=== PATIENT | female | born 1950 | race Caucasian/White ===

== ENCOUNTER 2020-04-03 22:09 | Inpatient (IN) ==
[2020-04-03] MEDS ORDERED: *HR* FentaNYL (PF) 100 MCG/2 ML VIAL IVP ONE (22:27)
[2020-04-03 23:37] LABS: Basophils % 0.5 %; Mean Corpuscular HGB Conc 32.9 g/dL (31.6-35.5)
[2020-04-03 23:39] LABS: Basophils # 0.1 K/mcL (0.0-0.2); Eosinophils % 0.3 %; Hematocrit 42.6 % (35.3-44.9); Immature Granulocytes % 0.4 % (0-4); Immature Platelets 6.2 % (1.1-6.1); Lymphocytes # 1.3 K/mcL (0.6-4.6); Lymphocytes % 8.1 %; Mean Corpuscular Hemoglobin 28.9 pg (28.0-33.3); Mean Platelet Volume 10.7 fL (9.4-12.4); Monocytes # 0.8 K/mcL (0.0-1.3); Monocytes % 5.1 %; Neutrophils # 13.4 K/mcL (1.6-8.9); Nucleated Red Blood Cells 0.3 /100 WBC (0); Platelet Count 184 K/mcL (140-400); Red Blood Count 4.84 M/mcL (3.82-4.97); Segmented Neutrophils % 85.6 %; White Blood Count 15.6 K/mcL (4.3-11.1)
[2020-04-03 23:49] LABS: Calcium 8.7 mg/dL (8.6-10.3); Potassium 4.5 mEq/L (3.5-5.1)
[2020-04-04] MEDS ORDERED: Naloxone 0.4 MG/ML INJ IVP PRN ×2 (00:43→22:19)
[2020-04-04] MEDS ORDERED: 0.9 % Sodium Chloride 1,000 ML IVC SCH (00:45)
[2020-04-04 01:23] LABS: Eosinophils # 0.1 K/mcL (0.0-0.6)
[2020-04-04] MEDS ORDERED: Dextrose Gel 15 GM/37.5 ML TUBE PO PRN ×4 (02:55→22:19)
[2020-04-04] MEDS ORDERED: *HR* Dextrose 50 % in Water (Vial) 50 ML VIAL IVP PRN ×2 (02:55→22:19)
[2020-04-04] MEDS ORDERED: D5% in Water 1,000 ML IVC PRN ×2 (02:55→22:19)
[2020-04-04 03:25] LABS: Hemoglobin 13.6 g/dL (11.5-15.4); Mean Corpuscular HGB Conc 30.9 g/dL (31.6-35.5); Mean Corpuscular Hemoglobin 28.1 pg (28.0-33.3); Mean Corpuscular Volume 90.9 fL (83.0-100.0); Mean Platelet Volume 10.5 fL (9.4-12.4); Platelet Count 226 K/mcL (140-400); Red Blood Count 4.84 M/mcL (3.82-4.97); White Blood Count 15.6 K/mcL (4.3-11.1)
[2020-04-04 03:30] LABS: INR 1.2; Prothrombin Time 13.2 Seconds (9.4-12.1)
[2020-04-04 03:50] LABS: Calcium 8.6 mg/dL (8.6-10.3); Potassium 5.1 mEq/L (3.5-5.1)
[2020-04-04 05:18] LABS: Bilirubin,Urine Negative (Negative); Blood,Urine Negative (Negative); Clarity,Urine Clear (Clear); Color,Urine Light-Yellow (Yellow); Glucose,Urine (UA) Normal (Normal); Ketones,Urine Trace mg/dL (Negative); Leukocyte Esterase,Urine Negative (Negative); Nitrite,Urine Negative (Negative); PH,Urine 5.5 pH Units (5.0-8.0); Protein,Urine Trace mg/dL (Neg-Trace); Specific Gravity,Urine 1.019 (1.010-1.025); Urobilinogen,Urine Normal (Normal)
[2020-04-04] MEDS: Insulin LISPRO 300 UNITS/3 ML VIAL SQ SCH ×3 (05:41→18:01)
[2020-04-04] MEDS ORDERED: Fluconazole 150 MG TABLET PO SCH (09:00)
[2020-04-04] MEDS ORDERED: Metoprolol XL (24 HR) Succ 50 MG TAB.ER.24H PO SCH (09:00)
[2020-04-04] MEDS ORDERED: Total Joint Mixture (50 ml) INTRAART ONE (12:00)
[2020-04-04] MEDS ORDERED: *HR* Succinylcholine 200 MG/10 ML VIAL IVP ONE (18:02)
[2020-04-04] MEDS ORDERED: *HR* Propofol 200 MG/20 ML VIAL IVP ONE (18:02)
[2020-04-04] MEDS ORDERED: Ondansetron 4 MG/2 ML VIAL ONE ×2 (18:02→21:55)
[2020-04-04] MEDS ORDERED: Lidocaine -MPF 2% 2 ML VIAL ONE (18:02)
[2020-04-04] MEDS ORDERED: Lidocaine HCL 4 ML Topical Solution (Laryng-O-Jet Kit Sterile Pak) TP ONE (18:02)
[2020-04-04] MEDS ORDERED: Vancomycin 1,000 MG VIAL ONE (18:16)
[2020-04-04] MEDS ORDERED: Ethanol\\Acetic Acid\\Na Ace\\Ben 1,000 ML IRRIG.SOLN IR ONE (18:16)
[2020-04-04] MEDS ORDERED: *HR* FentaNYL (PF) 100 MCG/2 ML VIAL ONE ×2 (18:48→19:48)
[2020-04-04] MEDS ORDERED: EPHEDrine 50 MG/ML VIAL ONE (19:17)
[2020-04-04] MEDS ORDERED: *HR* PHENYLEPHRINE 1,000 MCG/10 ML SYRINGE IVP ONE (20:30)
[2020-04-04 21:45] LABS: Hematocrit 42.9 % (35.3-44.9)
[2020-04-04] MEDS ORDERED: Ondansetron 4 MG/2 ML VIAL IVP ONE ×2 (21:53→22:19)
[2020-04-04] MEDS ORDERED: Ondansetron 4 MG/2 ML VIAL IVP PRN (22:19)
[2020-04-04] MEDS ORDERED: *HR* OxyCODONE Immed Rel 5 MG TABLET PO PRN (22:19)
[2020-04-04] MEDS ORDERED: MOM Conc 10 ML UD.LIQ PO PRN (22:19)
[2020-04-04] MEDS ORDERED: *HR* Promethazine 25 MG/ML VIAL IVP PRN ×2 (22:19)
[2020-04-04] MEDS ORDERED: Sennosides 8.6 MG TABLET PO PRN (22:19)
[2020-04-04] MEDS ORDERED: *HR* HYDROmorphone PF 0.5 MG/0.5 ML SYRINGE IVP PRN (22:19)
[2020-04-05] MEDS: CeFAZolin 2 GM/120 ML BAG IVPB SCH ×2 (00:27→07:35)
[2020-04-05] MEDS: Insulin LISPRO 300 UNITS/3 ML VIAL SQ SCH ×4 (00:34→19:14)
[2020-04-05] MEDS: Ringers Solution, Lactated 1,000 ML IVC SCH (03:43)
[2020-04-05 07:36] LABS: Hematocrit 39.8 % (35.3-44.9); Hemoglobin 12.4 g/dL (11.5-15.4); Mean Corpuscular HGB Conc 31.2 g/dL (31.6-35.5); Mean Corpuscular Hemoglobin 28.6 pg (28.0-33.3); Mean Corpuscular Volume 91.9 fL (83.0-100.0); Platelet Count 177 K/mcL (140-400); Red Blood Count 4.33 M/mcL (3.82-4.97); Red Cell Distribution Width 14.5 % (11.5-14.5); White Blood Count 18.3 K/mcL (4.3-11.1)
[2020-04-05] MEDS: Metoprolol XL (24 HR) Succ 50 MG TAB.ER.24H PO SCH (07:36)
[2020-04-05 07:56] LABS: Calcium 8.2 mg/dL (8.6-10.3); Potassium 5.3 mEq/L (3.5-5.1)
[2020-04-05] MEDS: Multivit/Ca/Min/Fe/FA 1 TAB TABLET PO SCH (11:25)
[2020-04-05] MEDS: Ascorbic Acid 500 MG TABLET PO SCH ×2 (11:26→17:09)
[2020-04-05] MEDS: 0.9 % Sodium Chloride 1,000 ML IVC SCH (14:35)
[2020-04-05] MEDS: HYDROcodone BIT/Homatropine 5 MG TABLET PO PRN ×2 (15:31→20:16)
[2020-04-05] MEDS ORDERED: Perflutren Lipid Microsphere 1.3 ML in 0.9 % Sodium Chloride 8.7 ML IVP PRN (17:39)
[2020-04-05] MEDS ORDERED: Aspirin Enteric Coated 81 MG Tablet PO SCH (18:00)
[2020-04-05] MEDS ORDERED: Haloperidol Lactate 5 MG/ML VIAL IVP PRN (18:05)
[2020-04-05] MEDS: *HR* Heparin 5,000 UNIT/ML VIAL SQ SCH (20:13)
[2020-04-06] MEDS ORDERED: *HR* Promethazine 25 MG/ML VIAL IVP ONE (00:36)
[2020-04-06] MEDS: 0.9 % Sodium Chloride 1,000 ML IVC SCH ×4 (01:08→23:23)
[2020-04-06] MEDS: Insulin LISPRO 300 UNITS/3 ML VIAL SQ SCH ×4 (01:13→18:14)
[2020-04-06] MEDS: Ringers Solution, Lactated 1,000 ML IVC SCH (02:14)
[2020-04-06] MEDS: *HR* Heparin 5,000 UNIT/ML VIAL SQ SCH ×2 (05:51→18:14)
[2020-04-06] MEDS: Multivit/Ca/Min/Fe/FA 1 TAB TABLET PO SCH (08:55)
[2020-04-06] MEDS: Aspirin 325 MG TABLET PO SCH (08:55)
[2020-04-06] MEDS: Metoprolol XL (24 HR) Succ 50 MG TAB.ER.24H PO SCH (08:56)
[2020-04-06] MEDS: Ascorbic Acid 500 MG TABLET PO SCH ×2 (08:56→15:12)
[2020-04-06 10:03] LABS: Hematocrit 35.6 % (35.3-44.9); Hemoglobin 11.1 g/dL (11.5-15.4); Mean Corpuscular HGB Conc 31.2 g/dL (31.6-35.5); Mean Corpuscular Hemoglobin 28.4 pg (28.0-33.3); Mean Platelet Volume 11.1 fL (9.4-12.4); Platelet Count 173 K/mcL (140-400); Red Blood Count 3.91 M/mcL (3.82-4.97); Red Cell Distribution Width 14.4 % (11.5-14.5); White Blood Count 18.3 K/mcL (4.3-11.1)
[2020-04-06 10:23] LABS: Calcium 7.4 mg/dL (8.6-10.3); Potassium 4.8 mEq/L (3.5-5.1)
[2020-04-06] MEDS ORDERED: levoFLOXacin 500 MG/100 ML 500 MG/100 ML BAG IVPB SCH (10:30)
[2020-04-06] MEDS: *HR* OxyCODONE Immed Rel 5 MG TABLET PO PRN (12:31)
[2020-04-06 13:50] LABS: Bacteria,Urine Few per hpf (None-Few); Bilirubin,Urine Negative (Negative); Blood,Urine Small (Negative); Clarity,Urine Turbid (Clear); Color,Urine Yellow (Yellow); Glucose,Urine (UA) Normal (Normal); Ketones,Urine Trace mg/dL (Negative); Leukocyte Esterase,Urine Small (Negative); Mucus,Urine Few per lpf (None-Few); Nitrite,Urine Negative (Negative); PH,Urine 5.5 pH Units (5.0-8.0); Protein,Urine 50 mg/dL (Neg-Trace); Specific Gravity,Urine 1.027 (1.010-1.025); Squamous Epithelial Cell,Urine Few per hpf (None-Few); Urobilinogen,Urine Normal (Normal)
[2020-04-06 13:57] LABS: Sodium, Urine 57.5 mEq/L
[2020-04-07] MEDS: Insulin LISPRO 300 UNITS/3 ML VIAL SQ SCH ×5 (00:45→23:49)
[2020-04-07] MEDS: *HR* Heparin 5,000 UNIT/ML VIAL SQ SCH ×2 (05:44→15:35)
[2020-04-07 06:04] LABS: Basophils # 0.1 K/mcL (0.0-0.2); Basophils % 0.5 %; Eosinophils # 0.5 K/mcL (0.0-0.6); Eosinophils % 4.4 %; Hematocrit 28.1 % (35.3-44.9); Hemoglobin 8.7 g/dL (11.5-15.4); Immature Granulocytes % 0.5 % (0-4); Lymphocytes # 1.3 K/mcL (0.6-4.6); Lymphocytes % 12.1 %; Mean Corpuscular Hemoglobin 28.7 pg (28.0-33.3); Mean Corpuscular Volume 92.7 fL (83.0-100.0); Mean Platelet Volume 11.3 fL (9.4-12.4); Monocytes # 0.7 K/mcL (0.0-1.3); Monocytes % 6.7 %; Neutrophils # 8.3 K/mcL (1.6-8.9); Platelet Count 149 K/mcL (140-400); Red Blood Count 3.03 M/mcL (3.82-4.97); Red Cell Distribution Width 14.6 % (11.5-14.5); Segmented Neutrophils % 75.8 %
[2020-04-07 06:25] LABS: BUN/Creatinine Ratio 15 (6-26); Blood Urea Nitrogen 39 mg/dL (8-23); Calcium 6.9 mg/dL (8.6-10.3); Carbon Dioxide 17 mEq/L (23-29); Chloride 111 mEq/L (98-107); Glucose 177 mg/dL (70-105); Magnesium 1.7 mg/dL (1.6-2.6); Osmolality,Calculated 296 (280-300); Phosphorous 3.8 mg/dL (2.7-4.5); Potassium 4.5 mEq/L (3.5-5.1); Sodium 136 mEq/L (136-145); eGFR For African Americans 21 (> 60); eGFR For Non-African Americans 18 (> 60)
[2020-04-07] MEDS: Aspirin 325 MG TABLET PO SCH (08:42)
[2020-04-07] MEDS: Metoprolol XL (24 HR) Succ 50 MG TAB.ER.24H PO SCH (08:42)
[2020-04-07] MEDS: Ascorbic Acid 500 MG TABLET PO SCH ×2 (08:45→15:35)
[2020-04-07] MEDS: Multivit/Ca/Min/Fe/FA 1 TAB TABLET PO SCH (08:46)
[2020-04-07] MEDS: Calcium Gluconate 1gm/50mL 1 GM/50 ML BAG IVPB SCH ×2 (10:36→11:53)
[2020-04-07 10:59] LABS: Alanine Aminotransferase < 3 Units/L (7-52); Albumin 2.6 g/dL (3.5-5.7); Albumin/Globulin Ratio 1.2 (1.1-2.2); Alkaline Phosphatase 75 Units/L (34-104); Aspartate Amino Transferase 16 Units/L (13-39); Bilirubin,Direct 0.1 mg/dL (0.0-0.2); Bilirubin,Indirect 0.4 mg/dL (0.0-1.0); Bilirubin,Total 0.5 mg/dL (0.3-1.0); Globulin 2.1 g/dL (2.4-3.5); Total Protein 4.7 g/dL (6.4-8.9)
[2020-04-07] MEDS ORDERED: 0.9 % Sodium Chloride 250 ML ONE (11:42)
[2020-04-07] MEDS: 0.9 % Sodium Chloride 1,000 ML IVC SCH ×2 (11:57→23:16)
[2020-04-07] MEDS: *HR* OxyCODONE Immed Rel 5 MG TABLET PO PRN (12:35)
[2020-04-07 14:07] LABS: Chol/HDL Ratio 4.3 (0-4.9)
[2020-04-07 14:46] LABS: Estimated Average Glucose 163 mg/dl
[2020-04-08] MEDS ORDERED: 0.9 % Sodium Chloride 250 ML ONE (00:41)
[2020-04-08] MEDS: 0.9 % Sodium Chloride 1,000 ML IVC SCH ×3 (04:49→19:53)
[2020-04-08] MEDS: *HR* OxyCODONE Immed Rel 5 MG TABLET PO PRN ×2 (05:55→20:15)
[2020-04-08] MEDS: *HR* Heparin 5,000 UNIT/ML VIAL SQ SCH ×2 (05:56→18:10)
[2020-04-08] MEDS: Insulin LISPRO 300 UNITS/3 ML VIAL SQ SCH ×3 (06:01→18:10)
[2020-04-08] MEDS: Aspirin 325 MG TABLET PO SCH (07:40)
[2020-04-08] MEDS: Ascorbic Acid 500 MG TABLET PO SCH ×2 (07:40→18:11)
[2020-04-08] MEDS: Multivit/Ca/Min/Fe/FA 1 TAB TABLET PO SCH (07:40)
[2020-04-08] MEDS: Metoprolol XL (24 HR) Succ 50 MG TAB.ER.24H PO SCH (07:40)
[2020-04-08] MEDS ORDERED: Cefdinir 300 MG CAPSULE PO SCH ×2 (09:00)
[2020-04-08 09:20] LABS: Potassium 4.6 mEq/L (3.5-5.1)
[2020-04-08 09:30] LABS: Calcium 7.3 mg/dL (8.6-10.3); Magnesium 1.8 mg/dL (1.6-2.6)
[2020-04-08 10:14] LABS: Basophils # 0.1 K/mcL (0.0-0.2); Basophils % 0.9 %; Eosinophils # 0.5 K/mcL (0.0-0.6); Eosinophils % 5.2 %; Hematocrit 37.6 % (35.3-44.9); Hemoglobin 11.7 g/dL (11.5-15.4); Immature Granulocytes % 0.7 % (0-4); Lymphocytes # 1.9 K/mcL (0.6-4.6); Lymphocytes % 18.7 %; Mean Corpuscular HGB Conc 31.1 g/dL (31.6-35.5); Mean Corpuscular Hemoglobin 28.6 pg (28.0-33.3); Mean Corpuscular Volume 91.9 fL (83.0-100.0); Mean Platelet Volume 11.5 fL (9.4-12.4); Monocytes # 0.6 K/mcL (0.0-1.3); Monocytes % 5.5 %; Neutrophils # 7.1 K/mcL (1.6-8.9); Nucleated Red Blood Cells 0.6 /100 WBC (0); Platelet Count 156 K/mcL (140-400); Red Blood Count 4.09 M/mcL (3.82-4.97); Red Cell Distribution Width 15.9 % (11.5-14.5); White Blood Count 10.3 K/mcL (4.3-11.1)
[2020-04-08] MEDS ORDERED: levoFLOXacin 750 MG TABLET PO SCH ×2 (10:30)
[2020-04-08] MEDS ORDERED: levoFLOXacin 500 MG TABLET PO SCH (12:00)
[2020-04-09] MEDS: 0.9 % Sodium Chloride 1,000 ML IVC SCH ×3 (03:07→22:30)
[2020-04-09 03:21] LABS: Basophils # 0.1 K/mcL (0.0-0.2); Basophils % 0.8 %; Eosinophils # 0.5 K/mcL (0.0-0.6); Eosinophils % 5.7 %; Hematocrit 29.1 % (35.3-44.9); Immature Granulocytes % 0.5 % (0-4); Lymphocytes # 1.9 K/mcL (0.6-4.6); Lymphocytes % 22.3 %; Mean Corpuscular HGB Conc 31.6 g/dL (31.6-35.5); Mean Corpuscular Hemoglobin 28.7 pg (28.0-33.3); Mean Corpuscular Volume 90.7 fL (83.0-100.0); Mean Platelet Volume 10.9 fL (9.4-12.4); Monocytes # 0.6 K/mcL (0.0-1.3); Monocytes % 7.5 %; Neutrophils # 5.3 K/mcL (1.6-8.9); Platelet Count 182 K/mcL (140-400); Red Blood Count 3.21 M/mcL (3.82-4.97); Red Cell Distribution Width 15.6 % (11.5-14.5); Segmented Neutrophils % 63.2 %; White Blood Count 8.3 K/mcL (4.3-11.1)
[2020-04-09 03:25] LABS: Hemoglobin 9.2 g/dL (11.5-15.4)
[2020-04-09 03:38] LABS: Calcium 7.2 mg/dL (8.6-10.3); Magnesium 1.7 mg/dL (1.6-2.6); Potassium 4.1 mEq/L (3.5-5.1)
[2020-04-09] MEDS: *HR* Heparin 5,000 UNIT/ML VIAL SQ SCH (05:41)
[2020-04-09] MEDS: Insulin LISPRO 300 UNITS/3 ML VIAL SQ SCH ×3 (07:39→16:50)
[2020-04-09] MEDS: Ascorbic Acid 500 MG TABLET PO SCH ×2 (08:20→16:49)
[2020-04-09] MEDS: Aspirin 325 MG TABLET PO SCH (08:21)
[2020-04-09] MEDS: Multivit/Ca/Min/Fe/FA 1 TAB TABLET PO SCH (08:21)
[2020-04-09] MEDS: Metoprolol XL (24 HR) Succ 50 MG TAB.ER.24H PO SCH (08:21)
[2020-04-09 08:47] LABS: Hematocrit 29.1 % (35.3-44.9); Hemoglobin 9.2 g/dL (11.5-15.4)
[2020-04-09] MEDS ORDERED: QUEtiapine Fumarate 25 MG TABLET PO PRN (11:18)
[2020-04-09] MEDS: Cyanocobalamin (B-12) 1,000 MCG TABLET PO SCH (11:44)
[2020-04-09] MEDS: *HR* OxyCODONE Immed Rel 5 MG TABLET PO PRN (15:47)
[2020-04-10] MEDS: *HR* OxyCODONE Immed Rel 5 MG TABLET PO PRN ×3 (03:23→13:57)
[2020-04-10 04:34] LABS: Basophils # 0.1 K/mcL (0.0-0.2); Basophils % 0.8 %; Eosinophils # 0.4 K/mcL (0.0-0.6); Eosinophils % 4.2 %; Hematocrit 33.4 % (35.3-44.9); Hemoglobin 10.7 g/dL (11.5-15.4); Immature Granulocytes % 0.6 % (0-4); Lymphocytes % 21.3 %; Mean Corpuscular Hemoglobin 28.9 pg (28.0-33.3); Mean Corpuscular Volume 90.3 fL (83.0-100.0); Mean Platelet Volume 10.7 fL (9.4-12.4); Monocytes # 0.8 K/mcL (0.0-1.3); Monocytes % 8.1 %; Neutrophils # 6.2 K/mcL (1.6-8.9); Platelet Count 230 K/mcL (140-400); Red Cell Distribution Width 15.6 % (11.5-14.5); White Blood Count 9.6 K/mcL (4.3-11.1)
[2020-04-10 04:54] LABS: Calcium 7.8 mg/dL (8.6-10.3); Magnesium 1.7 mg/dL (1.6-2.6); Phosphorous 2.5 mg/dL (2.7-4.5); Potassium 3.9 mEq/L (3.5-5.1)
[2020-04-10] MEDS: 0.9 % Sodium Chloride 1,000 ML IVC SCH ×2 (05:12→13:01)
[2020-04-10] MEDS: Aspirin 325 MG TABLET PO SCH (07:47)
[2020-04-10] MEDS: Multivit/Ca/Min/Fe/FA 1 TAB TABLET PO SCH (07:47)
[2020-04-10] MEDS: Metoprolol XL (24 HR) Succ 50 MG TAB.ER.24H PO SCH (07:48)
[2020-04-10] MEDS: Insulin LISPRO 300 UNITS/3 ML VIAL SQ SCH ×3 (07:48→17:41)
[2020-04-10] MEDS: Cyanocobalamin (B-12) 1,000 MCG TABLET PO SCH (07:48)
[2020-04-10] MEDS: Ascorbic Acid 500 MG TABLET PO SCH ×2 (07:48→17:40)
[2020-04-11 01:39] LABS: Basophils # 0.1 K/mcL (0.0-0.2); Basophils % 0.7 %; Eosinophils # 0.5 K/mcL (0.0-0.6); Eosinophils % 4.9 %; Hematocrit 32.1 % (35.3-44.9); Hemoglobin 10.3 g/dL (11.5-15.4); Immature Granulocytes % 1.3 % (0-4); Lymphocytes % 19.1 %; Mean Corpuscular HGB Conc 32.1 g/dL (31.6-35.5); Mean Corpuscular Hemoglobin 28.7 pg (28.0-33.3); Mean Corpuscular Volume 89.4 fL (83.0-100.0); Mean Platelet Volume 10.4 fL (9.4-12.4); Monocytes # 0.8 K/mcL (0.0-1.3); Monocytes % 7.9 %; Neutrophils # 6.7 K/mcL (1.6-8.9); Platelet Count 264 K/mcL (140-400); Red Blood Count 3.59 M/mcL (3.82-4.97); Red Cell Distribution Width 15.6 % (11.5-14.5); Segmented Neutrophils % 66.1 %; White Blood Count 10.2 K/mcL (4.3-11.1)
[2020-04-11 01:59] LABS: Calcium 7.7 mg/dL (8.6-10.3); Magnesium 1.7 mg/dL (1.6-2.6); Phosphorous 3.4 mg/dL (2.7-4.5); Potassium 4.2 mEq/L (3.5-5.1)
[2020-04-11] MEDS: 0.9 % Sodium Chloride 1,000 ML IVC SCH (04:31)
[2020-04-11] MEDS ORDERED: Nystatin POWDER 30 GM BOTTLE TP SCH (09:00)
[2020-04-11] MEDS: *HR* OxyCODONE Immed Rel 5 MG TABLET PO PRN (09:29)
[2020-04-11] MEDS: Multivit/Ca/Min/Fe/FA 1 TAB TABLET PO SCH (09:29)
[2020-04-11] MEDS: Aspirin 325 MG TABLET PO SCH (09:29)
[2020-04-11] MEDS: Metoprolol XL (24 HR) Succ 50 MG TAB.ER.24H PO SCH (09:29)
[2020-04-11] MEDS: Ascorbic Acid 500 MG TABLET PO SCH (09:30)
[2020-04-11] MEDS: Insulin LISPRO 300 UNITS/3 ML VIAL SQ SCH (09:30)
[2020-04-11] MEDS: Cyanocobalamin (B-12) 1,000 MCG TABLET PO SCH (09:31)
[2020-04-11 10:33] VITALS: BP 117/74
== END 2020-04-11 11:49 | DRG 466 ==
LOC: EMEROOARM 22:09 → 3NENU 22:09 → SUATTDRO 04-04 16:35
PROVIDERS: ADMIT Internal Medicine; ATTEND Family Medicine

== ENCOUNTER 2020-05-15 13:53 | Inpatient (IN) ==
[~2020-05-15 13:53] MED LIST: Povidone-Iodine 45 ML, Sodium Chloride IRRigation 1,000 ML IR ONE
[2020-05-15] MEDS ORDERED: CeFAZolin Syr 2,000MG/20 ML 2,000 MG/20 ML SYRINGE IVPB ONE (14:19)
[2020-05-15] MEDS ORDERED: *HR* Dextrose 50 % in Water (Vial) 50 ML VIAL IVP ONE (14:19)
[2020-05-15] MEDS ORDERED: Vancomycin 1,250 MG/262.5 ML IV.SOLN IVPB ONE (14:19)
[2020-05-15] MEDS ORDERED: *HR* Dextrose 50 % in Water (Vial) 50 ML VIAL ONE (14:27)
[2020-05-15] MEDS ORDERED: Ringers Solution, Lactated 1,000 ML IVC SCH ×2 (14:30→19:18)
[2020-05-15] MEDS ORDERED: Famotidine 20 MG/2 ML VIAL IVP ONE (14:49)
[2020-05-15] MEDS ORDERED: Acetaminophen IV 1,000 MG/100 ML INFUS..BTL IVPB ONE (14:49)
[2020-05-15 15:19] LABS: Adenovirus Not Detected (Not Detect); Bordetella Pertussis Not Detected (Not Detect); Chlamydophila pneumoniae Not Detected (Not Detect); Coronavirus 229E Not Detected (Not Detect); Coronavirus HKU1 Not Detected (Not Detect); Coronavirus NL63 Not Detected (Not Detect); Coronavirus OC43 Not Detected (Not Detect); Human Metapneumovirus Not Detected (Not Detect); Human Rhinovirus/Enterovirus Not Detected (Not Detect); Influenza A Subtype 2009 H1 Not Detected (Not Detect); Influenza B Not Detected (Not Detect); Mycoplasma pneumoniae Not Detected (Not Detect); Parainfluenza Virus 1 Not Detected (Not Detect); Parainfluenza Virus 2 Not Detected (Not Detect); Parainfluenza Virus 3 Not Detected (Not Detect); Parainfluenza Virus 4 Not Detected (Not Detect); Respiratory Syncytial Virus Not Detected (Not Detect); SARS-CoV-2 Not Detected (Not Detect)
[2020-05-15] MEDS ORDERED: Ethanol\\Acetic Acid\\Na Ace\\Ben 1,000 ML IRRIG.SOLN IR ONE ×2 (16:21→16:22)
[2020-05-15] MEDS ORDERED: Vancomycin 1,000 MG VIAL ONE (16:22)
[2020-05-15] MEDS ORDERED: Ondansetron 4 MG/2 ML VIAL ONE (16:38)
[2020-05-15] MEDS ORDERED: Lidocaine -MPF 2% 2 ML VIAL ONE (16:38)
[2020-05-15] MEDS ORDERED: Dexamethasone 4 MG/ML VIAL ONE (16:38)
[2020-05-15] MEDS ORDERED: *HR* FentaNYL (PF) 100 MCG/2 ML VIAL ONE ×2 (16:39→17:07)
[2020-05-15] MEDS ORDERED: *HR* Propofol 200 MG/20 ML VIAL IVP ONE (16:39)
[2020-05-15] MEDS ORDERED: EPHEDrine 50 MG/ML VIAL ONE (16:55)
[2020-05-15 19:12] LABS: Hematocrit 32.6 % (35.3-44.9); Hemoglobin 9.8 g/dL (11.5-15.4)
[2020-05-15] MEDS ORDERED: Naloxone 0.4 MG/ML INJ IVP PRN (19:18)
[2020-05-15] MEDS ORDERED: *HR* Dextrose 50 % in Water (Vial) 50 ML VIAL IVP PRN (19:18)
[2020-05-15] MEDS ORDERED: D5% in Water 1,000 ML IVC PRN (19:18)
[2020-05-15] MEDS ORDERED: *HR* Promethazine 25 MG/ML VIAL IVP PRN (19:18)
[2020-05-15] MEDS ORDERED: Sennosides 8.6 MG TABLET PO PRN (19:18)
[2020-05-15] MEDS ORDERED: MOM Conc 10 ML UD.LIQ PO PRN (19:18)
[2020-05-15] MEDS ORDERED: Dextrose Gel 15 GM/37.5 ML TUBE PO PRN ×2 (19:18)
[2020-05-15] MEDS: Insulin LISPRO 300 UNITS/3 ML VIAL SQ SCH ×2 (20:35→22:08)
[2020-05-15] MEDS: Ascorbic Acid 500 MG TABLET PO SCH (20:36)
[2020-05-15] MEDS: *HR* OxyCODONE Immed Rel 5 MG TABLET PO PRN (20:37)
[2020-05-15] MEDS: Metoprolol XL (24 HR) Succ 50 MG TAB.ER.24H PO SCH (22:34)
[2020-05-15] MEDS: Cholecalciferol (D-3) 1,000 UNIT (25MCG) TABLET PO SCH (22:34)
[2020-05-15] MEDS ORDERED: DAPTOmycin 550 MG in 0.9 % Sodium Chloride 100 ML IVPB SCH (23:00)
[2020-05-16] MEDS: *HR* OxyCODONE Immed Rel 5 MG TABLET PO PRN (04:49)
[2020-05-16 05:04] LABS: Basophils # 0.1 K/mcL (0.0-0.2); Basophils % 0.5 %; Hematocrit 28.6 % (35.3-44.9); Hemoglobin 8.8 g/dL (11.5-15.4); Immature Granulocytes % 0.5 % (0-4); Lymphocytes # 0.8 K/mcL (0.6-4.6); Lymphocytes % 6.3 %; Mean Corpuscular HGB Conc 30.8 g/dL (31.6-35.5); Mean Corpuscular Volume 97.6 fL (83.0-100.0); Mean Platelet Volume 9.9 fL (9.4-12.4); Monocytes # 0.4 K/mcL (0.0-1.3); Neutrophils # 11.5 K/mcL (1.6-8.9); Platelet Count 261 K/mcL (140-400); Red Blood Count 2.93 M/mcL (3.82-4.97); Segmented Neutrophils % 89.7 %; White Blood Count 12.8 K/mcL (4.3-11.1)
[2020-05-16 05:25] LABS: Calcium 7.8 mg/dL (8.6-10.3); Potassium 5.2 mEq/L (3.5-5.1)
[2020-05-16] MEDS ORDERED: (Liraglutide [Victoza 2-Pak] 1.2 MG) SQ SCH (09:00)
[2020-05-16] MEDS ORDERED: SODIUM ZIRCONIUM CYCLOSILICATE 5 GM POWD.PACK PO ONE (09:15)
[2020-05-16] MEDS: Cyanocobalamin (B-12) 1,000 MCG TABLET PO SCH (09:31)
[2020-05-16] MEDS: Ascorbic Acid 500 MG TABLET PO SCH ×2 (09:31→16:52)
[2020-05-16] MEDS: Cholecalciferol (D-3) 1,000 UNIT (25MCG) TABLET PO SCH (09:31)
[2020-05-16] MEDS: Multivit/Ca/Min/Fe/FA 1 TAB TABLET PO SCH (09:31)
[2020-05-16] MEDS: Insulin LISPRO 300 UNITS/3 ML VIAL SQ SCH ×4 (09:32→21:10)
[2020-05-16] MEDS: Metoprolol XL (24 HR) Succ 50 MG TAB.ER.24H PO SCH (11:01)
[2020-05-16] MEDS: Aspirin 325 MG TABLET PO SCH (11:02)
[2020-05-16] MEDS: Ondansetron 4 MG/2 ML VIAL IVP PRN (12:30)
[2020-05-16] MEDS: *HR* Heparin 5,000 UNIT/ML VIAL SQ SCH ×2 (14:18→21:09)
[2020-05-16] MEDS: Cefepime HCl 2,000 MG in 0.9 % Sodium Chloride Mini Bag 100 ML IVPB SCH (14:18)
[2020-05-16 15:15] LABS: % Iron Saturation 24 % (15-50); C-Reactive Protein 8 mg/L (Less than 10); Creatine Kinase 47 Units/L (30-223); Iron 57 mcg/dL (50-170); Transferrin 168 mg/dL (203-362)
[2020-05-16] MEDS: DAPTOmycin 500 MG in 0.9 % Sodium Chloride 100 ML IVPB SCH (22:57)
[2020-05-17] MEDS: Cefepime HCl 2,000 MG in 0.9 % Sodium Chloride Mini Bag 100 ML IVPB SCH (00:22)
[2020-05-17 01:23] LABS: Bilirubin,Urine Negative (Negative); Blood,Urine Negative (Negative); Clarity,Urine Clear (Clear); Color,Urine Yellow (Yellow); Glucose,Urine (UA) Normal (Normal); Hyaline Casts,Urine Moderate per lpf (None Seen); Ketones,Urine Trace mg/dL (Negative); Leukocyte Esterase,Urine Small (Negative); Mucus,Urine Few per lpf (None-Few); Nitrite,Urine Negative (Negative); PH,Urine 5.5 pH Units (5.0-8.0); Protein,Urine 30 mg/dL (Neg-Trace); Squamous Epithelial Cell,Urine Few per hpf (None-Few); Urobilinogen,Urine Normal (Normal)
[2020-05-17] MEDS: *HR* Heparin 5,000 UNIT/ML VIAL SQ SCH ×3 (05:45→21:26)
[2020-05-17] MEDS: Insulin LISPRO 300 UNITS/3 ML VIAL SQ SCH ×4 (08:06→20:33)
[2020-05-17] MEDS: Aspirin 325 MG TABLET PO SCH (10:04)
[2020-05-17] MEDS: Cyanocobalamin (B-12) 1,000 MCG TABLET PO SCH (10:04)
[2020-05-17] MEDS: Multivit/Ca/Min/Fe/FA 1 TAB TABLET PO SCH (10:04)
[2020-05-17] MEDS: Cholecalciferol (D-3) 1,000 UNIT (25MCG) TABLET PO SCH (10:04)
[2020-05-17] MEDS: Ascorbic Acid 500 MG TABLET PO SCH ×2 (10:04→17:22)
[2020-05-17] MEDS: Metoprolol XL (24 HR) Succ 50 MG TAB.ER.24H PO SCH (10:11)
[2020-05-17 11:46] LABS: Basophils % 0.3 %; Eosinophils # 0.5 K/mcL (0.0-0.6); Eosinophils % 4.3 %; Hematocrit 25.6 % (35.3-44.9); Hemoglobin 7.7 g/dL (11.5-15.4); Immature Granulocytes % 0.3 % (0-4); Lymphocytes # 1.6 K/mcL (0.6-4.6); Lymphocytes % 14.3 %; Mean Corpuscular HGB Conc 30.1 g/dL (31.6-35.5); Mean Corpuscular Hemoglobin 29.8 pg (28.0-33.3); Mean Corpuscular Volume 99.2 fL (83.0-100.0); Mean Platelet Volume 10.4 fL (9.4-12.4); Monocytes # 0.7 K/mcL (0.0-1.3); Monocytes % 6.5 %; Neutrophils # 8.3 K/mcL (1.6-8.9); Platelet Count 214 K/mcL (140-400); Red Blood Count 2.58 M/mcL (3.82-4.97); Red Cell Distribution Width 17.4 % (11.5-14.5); Segmented Neutrophils % 74.3 %; White Blood Count 11.2 K/mcL (4.3-11.1)
[2020-05-17] MEDS: *HR* OxyCODONE Immed Rel 5 MG TABLET PO PRN ×2 (11:53→18:31)
[2020-05-17 12:04] LABS: Calcium 7.2 mg/dL (8.6-10.3); Potassium 4.2 mEq/L (3.5-5.1)
[2020-05-17] MEDS: HYDROcodone BIT/Homatropine 5 MG TABLET PO PRN (15:19)
[2020-05-17] MEDS ORDERED: 0.9 % Sodium Chloride 250 ML IVC SCH (16:00)
[2020-05-17 16:30] LABS: Hematocrit 24.5 % (35.3-44.9); Hemoglobin 7.4 g/dL (11.5-15.4)
[2020-05-17] MEDS: Cefepime HCl 2,000 MG in Water for inj. (sterile) 20 ML IVP SCH ×2 (18:10→20:32)
[2020-05-18] MEDS ORDERED: *HR* Metoprolol 5 MG/5 ML VIAL IVP ONE (00:03)
[2020-05-18] MEDS: DAPTOmycin 500 MG in 0.9 % Sodium Chloride 100 ML IVPB SCH (01:18)
[2020-05-18] MEDS ORDERED: 0.9 % Sodium Chloride 250 ML ONE (02:54)
[2020-05-18] MEDS: 0.9 % Sodium Chloride 1,000 ML IVC SCH ×3 (06:11→12:01)
[2020-05-18] MEDS: *HR* Heparin 5,000 UNIT/ML VIAL SQ SCH ×3 (06:12→22:20)
[2020-05-18] MEDS: Cefepime HCl 2,000 MG in Water for inj. (sterile) 20 ML IVP SCH ×2 (06:12→17:11)
[2020-05-18] MEDS: Insulin LISPRO 300 UNITS/3 ML VIAL SQ SCH ×4 (08:38→22:18)
[2020-05-18] MEDS: Aspirin 325 MG TABLET PO SCH (09:34)
[2020-05-18] MEDS: Metoprolol XL (24 HR) Succ 50 MG TAB.ER.24H PO SCH (09:34)
[2020-05-18] MEDS: *HR* OxyCODONE Immed Rel 5 MG TABLET PO PRN ×2 (09:34→14:14)
[2020-05-18] MEDS: Cyanocobalamin (B-12) 1,000 MCG TABLET PO SCH (09:34)
[2020-05-18] MEDS: Cholecalciferol (D-3) 1,000 UNIT (25MCG) TABLET PO SCH (09:34)
[2020-05-18] MEDS: Ascorbic Acid 500 MG TABLET PO SCH ×3 (09:34→17:14)
[2020-05-18] MEDS: Multivit/Ca/Min/Fe/FA 1 TAB TABLET PO SCH (09:34)
[2020-05-18 09:47] LABS: Calcium 8.1 mg/dL (8.6-10.3); Potassium 4.7 mEq/L (3.5-5.1)
[2020-05-18] MEDS: HYDROcodone BIT/Homatropine 5 MG TABLET PO PRN ×2 (11:39→17:11)
[2020-05-18 14:51] LABS: Hematocrit 38.8 % (35.3-44.9)
[2020-05-18 14:53] LABS: Hemoglobin 11.6 g/dL (11.5-15.4)
[2020-05-19] MEDS: DAPTOmycin 500 MG in 0.9 % Sodium Chloride 100 ML IVPB SCH (00:40)
[2020-05-19 03:36] LABS: Hematocrit 32.7 % (35.3-44.9); Mean Corpuscular HGB Conc 30.6 g/dL (31.6-35.5); Mean Corpuscular Hemoglobin 29.6 pg (28.0-33.3); Mean Corpuscular Volume 96.7 fL (83.0-100.0); Mean Platelet Volume 10.3 fL (9.4-12.4); Platelet Count 216 K/mcL (140-400); Red Blood Count 3.38 M/mcL (3.82-4.97); Red Cell Distribution Width 17.1 % (11.5-14.5); White Blood Count 8.6 K/mcL (4.3-11.1)
[2020-05-19 03:58] LABS: Calcium 7.9 mg/dL (8.6-10.3); Potassium 4.6 mEq/L (3.5-5.1)
[2020-05-19] MEDS: Nystatin POWDER 30 GM BOTTLE TP SCH ×4 (04:05→21:48)
[2020-05-19] MEDS: Cefepime HCl 2,000 MG in Water for inj. (sterile) 20 ML IVP SCH (05:26)
[2020-05-19] MEDS: *HR* Heparin 5,000 UNIT/ML VIAL SQ SCH ×3 (05:27→21:47)
[2020-05-19] MEDS: *HR* OxyCODONE Immed Rel 5 MG TABLET PO PRN ×2 (05:33→21:47)
[2020-05-19] MEDS ORDERED: Piperacillin/Tazobactam 3.375 GM in 0.9 % Sodium Chloride Mini Bag 100 ML IVPB SCH (08:00)
[2020-05-19] MEDS: Insulin LISPRO 300 UNITS/3 ML VIAL SQ SCH ×4 (09:16→21:43)
[2020-05-19] MEDS: Ascorbic Acid 500 MG TABLET PO SCH ×2 (10:08→15:15)
[2020-05-19] MEDS: Metoprolol XL (24 HR) Succ 50 MG TAB.ER.24H PO SCH (10:08)
[2020-05-19] MEDS: Multivit/Ca/Min/Fe/FA 1 TAB TABLET PO SCH (10:08)
[2020-05-19] MEDS: Cyanocobalamin (B-12) 1,000 MCG TABLET PO SCH (10:09)
[2020-05-19] MEDS: Cholecalciferol (D-3) 1,000 UNIT (25MCG) TABLET PO SCH (10:09)
[2020-05-19] MEDS: Aspirin 325 MG TABLET PO SCH (10:09)
[2020-05-19] MEDS: 0.9 % Sodium Chloride 1,000 ML IVC SCH (10:39)
[2020-05-19] MEDS ORDERED: levoFLOXacin 750 MG/150 ML 750 MG/150 ML BAG IVPB SCH (11:00)
[2020-05-19] MEDS ORDERED: hydrOXYzine pamoate 25 MG CAPSULE PO PRN (15:24)
[2020-05-19] MEDS: cefTRIAXone 2,000 MG in 0.9 % Sodium Chloride Mini Bag 100 ML IVPB SCH (15:37)
[2020-05-20] MEDS: *HR* Heparin 5,000 UNIT/ML VIAL SQ SCH ×3 (05:55→21:20)
[2020-05-20] MEDS: Insulin LISPRO 300 UNITS/3 ML VIAL SQ SCH ×4 (08:43→21:21)
[2020-05-20] MEDS: cefTRIAXone 2,000 MG in 0.9 % Sodium Chloride Mini Bag 100 ML IVPB SCH (09:14)
[2020-05-20] MEDS: Cyanocobalamin (B-12) 1,000 MCG TABLET PO SCH (09:14)
[2020-05-20] MEDS: Aspirin 325 MG TABLET PO SCH (09:14)
[2020-05-20] MEDS: Ascorbic Acid 500 MG TABLET PO SCH ×2 (09:14→16:14)
[2020-05-20] MEDS: Metoprolol XL (24 HR) Succ 50 MG TAB.ER.24H PO SCH (09:14)
[2020-05-20] MEDS: Multivit/Ca/Min/Fe/FA 1 TAB TABLET PO SCH (09:14)
[2020-05-20] MEDS: Cholecalciferol (D-3) 1,000 UNIT (25MCG) TABLET PO SCH (09:14)
[2020-05-20] MEDS: Nystatin POWDER 30 GM BOTTLE TP SCH ×3 (09:16→21:21)
[2020-05-20] MEDS: *HR* OxyCODONE Immed Rel 5 MG TABLET PO PRN ×2 (09:43→22:30)
[2020-05-20 10:52] LABS: Hematocrit 30.6 % (35.3-44.9); Hemoglobin 9.2 g/dL (11.5-15.4); Mean Corpuscular HGB Conc 30.1 g/dL (31.6-35.5); Mean Corpuscular Hemoglobin 28.8 pg (28.0-33.3); Mean Corpuscular Volume 95.9 fL (83.0-100.0); Mean Platelet Volume 10.1 fL (9.4-12.4); Platelet Count 229 K/mcL (140-400); Red Blood Count 3.19 M/mcL (3.82-4.97); Red Cell Distribution Width 17.4 % (11.5-14.5); White Blood Count 7.1 K/mcL (4.3-11.1)
[2020-05-20 11:10] LABS: Calcium 7.4 mg/dL (8.6-10.3); Potassium 4.5 mEq/L (3.5-5.1)
[2020-05-20] MEDS: Ondansetron 4 MG/2 ML VIAL IVP PRN (11:43)
[2020-05-20] MEDS ORDERED: Furosemide 20 MG TABLET PO ONE (12:00)
[2020-05-20] MEDS: 0.9 % Sodium Chloride 1,000 ML IVC SCH (17:54)
[2020-05-21 01:39] LABS: Hematocrit 30.2 % (35.3-44.9); Hemoglobin 9.1 g/dL (11.5-15.4); Mean Corpuscular HGB Conc 30.1 g/dL (31.6-35.5); Mean Corpuscular Volume 96.2 fL (83.0-100.0); Mean Platelet Volume 9.8 fL (9.4-12.4); Platelet Count 239 K/mcL (140-400); Red Blood Count 3.14 M/mcL (3.82-4.97); Red Cell Distribution Width 17.8 % (11.5-14.5); White Blood Count 7.7 K/mcL (4.3-11.1)
[2020-05-21 01:56] LABS: Potassium 4.8 mEq/L (3.5-5.1)
[2020-05-21] MEDS: *HR* OxyCODONE Immed Rel 5 MG TABLET PO PRN (05:59)
[2020-05-21] MEDS: *HR* Heparin 5,000 UNIT/ML VIAL SQ SCH (05:59)
[2020-05-21] MEDS: 0.9 % Sodium Chloride 1,000 ML IVC SCH (06:08)
[2020-05-21] MEDS: Multivit/Ca/Min/Fe/FA 1 TAB TABLET PO SCH (08:53)
[2020-05-21] MEDS: Ascorbic Acid 500 MG TABLET PO SCH (08:53)
[2020-05-21] MEDS: Aspirin 325 MG TABLET PO SCH (08:53)
[2020-05-21] MEDS: Cholecalciferol (D-3) 1,000 UNIT (25MCG) TABLET PO SCH (08:53)
[2020-05-21] MEDS: Metoprolol XL (24 HR) Succ 50 MG TAB.ER.24H PO SCH (08:54)
[2020-05-21] MEDS: cefTRIAXone 2,000 MG in 0.9 % Sodium Chloride Mini Bag 100 ML IVPB SCH (08:54)
[2020-05-21] MEDS: Cyanocobalamin (B-12) 1,000 MCG TABLET PO SCH (08:54)
[2020-05-21] MEDS: Insulin LISPRO 300 UNITS/3 ML VIAL SQ SCH ×2 (12:32→12:55)
[2020-05-21] MEDS: Nystatin POWDER 30 GM BOTTLE TP SCH (12:54)
[2020-05-21 16:18] VITALS: BP 138/84
== END 2020-05-21 18:38 | disposition home health service (06) | DRG 464 ==
LOC: SAMDAY 13:53 → 3NENU 19:07 → SUATTDRO 05-16 11:48 → 3NENU 05-16 11:48
PROVIDERS: ADMIT Orthopaedic Surgery; ATTEND Internal Medicine